=== PATIENT | male | born 1960 | race Caucasian/White ===

== ENCOUNTER 2018-07-20 18:18 | Inpatient (IN) | payer OTHER ==
[~2018-07-20] VITALS: Ht 180.3 cm; Wt 117.9 kg
[2018-07-20 20:36] LABS: BASOPHIL % 0.4 % (0-2); RED CELL DISTRIBUTION WIDTH 14.3 % (11.5-14.5)
[2018-07-20 20:46] LABS: PLATELET COUNT 89 x10^3mcL (130-400)
[2018-07-20 20:54] LABS: CALCIUM 8.7 mg/dL (8.5-10.1); CARBON DIOXIDE 26.4 mmol/L (21-32); CHLORIDE SERUM 100 mmol/L (98-107); CREATININE SERUM 0.8 mg/dL (0.7-1.3); GFR1 > 60 mL/min; GLUCOSE SERUM 115 mg/dL (74-106); POTASSIUM SERUM 3.6 mmol/L (3.5-5.1); SODIUM SERUM 134 mmol/L (136-145)
[2018-07-20 20:58] LABS: ALBUMIN 3.4 g/dL (3.4-5.0); ALKALINE PHOSPHATASE 92 U/L (46-116); ALT/SGPT 37 U/L (16-63); AST/SGOT 41 U/L (15-37); BILIRUBIN TOTAL 3.4 mg/dL (0.20-1.00); TOTAL PROTEIN, SERUM 7.8 g/dL (6.4-8.2)
[2018-07-20 23:21] LABS: BILIRUBIN DIRECT 0.78 mg/dL (0.0-0.2); BILIRUBIN TOTAL 3.5 mg/dL (0.20-1.00); MAGNESIUM 1.8 mg/dL (1.8-2.4)
[2018-07-20 23:36] VITALS: BP 128/66
[2018-07-20 23:37] LABS: microscopic required? NO
[2018-07-20 23:41] LABS: UA SPECIFIC GRAVITY <=1.005 (1.005-1.035); urine erythrocyte NEGATIVE (NEGATIVE)
[2018-07-20 23:50] LABS: AMPHETAMINE QUAL UR NONE DETECTED (See below)
[2018-07-21 00:55] VITALS: BP 128/66
[2018-07-21 05:33] VITALS: BP 120/71
[2018-07-21 06:19] LABS: BASOPHIL % 0.2 % (0-2); RED CELL DISTRIBUTION WIDTH 14.1 % (11.5-14.5)
[2018-07-21 06:42] LABS: CALCIUM 8.7 mg/dL (8.5-10.1); CARBON DIOXIDE 27.7 mmol/L (21-32); CHLORIDE SERUM 105 mmol/L (98-107); CREATININE SERUM 0.8 mg/dL (0.7-1.3); GFR1 > 60 mL/min; GLUCOSE SERUM 106 mg/dL (74-106); MAGNESIUM 1.7 mg/dL (1.8-2.4); PHOSPHOROUS 2.3 mg/dL (2.5-4.9); POTASSIUM SERUM 4.5 mmol/L (3.5-5.1); SODIUM SERUM 137 mmol/L (136-145)
[2018-07-21 07:15] LABS: PLATELET COUNT 76 x10^3mcL (130-400)
[2018-07-21 09:00] VITALS: BP 138/81
[2018-07-21 11:33] LABS: BILIRUBIN DIRECT 0.76 mg/dL (0.0-0.2); BILIRUBIN TOTAL 2.3 mg/dL (0.20-1.00); TOTAL PROTEIN, SERUM 6.7 g/dL (6.4-8.2)
[2018-07-21 11:39] LABS: ALBUMIN 2.9 g/dL (3.4-5.0)
[2018-07-21 13:18] VITALS: BP 122/71
[2018-07-21 21:09] VITALS: BP 128/79
[2018-07-22 05:09] VITALS: BP 128/72
[2018-07-22 07:56] LABS: BASOPHIL % 0.3 % (0-2); RED CELL DISTRIBUTION WIDTH 13.3 % (11.5-14.5)
[2018-07-22 08:02] LABS: PLATELET COUNT 93 x10^3mcL (130-400)
[2018-07-22 08:16] LABS: ALKALINE PHOSPHATASE 67 U/L (46-116); ALT/SGPT 22 U/L (16-63); AST/SGOT 31 U/L (15-37); BILIRUBIN DIRECT 0.69 mg/dL (0.0-0.2); BILIRUBIN TOTAL 2.24 mg/dL (0.20-1.00); CARBON DIOXIDE 25.2 mmol/L (21-32); CHLORIDE SERUM 108 mmol/L (98-107); CREATININE SERUM 0.7 mg/dL (0.7-1.3); GFR1 > 60 mL/min; GLUCOSE SERUM 90 mg/dL (74-106); MAGNESIUM 1.8 mg/dL (1.8-2.4); PHOSPHOROUS 3.5 mg/dL (2.5-4.9); POTASSIUM SERUM 3.7 mmol/L (3.5-5.1); SODIUM SERUM 140 mmol/L (136-145); TOTAL PROTEIN, SERUM 6.2 g/dL (6.4-8.2)
[2018-07-22 08:24] LABS: ALBUMIN 2.7 g/dL (3.4-5.0)
[2018-07-22 10:22] VITALS: BP 135/75
[2018-07-22] MEDS ORDERED: KEFLEX500 M1 PO (11:41)
[2018-07-22] MEDS ORDERED: BACTRIM DS1 TAB PO (11:42)
[2018-07-22] MEDS ORDERED: LAC PO (11:42)
[2018-07-22 12:01] VITALS: BP 135/75
[2018-07-22 14:06] VITALS: BP 138/81
[2018-07-23 11:09] VITALS: Ht 180.3 cm; Wt 117.9 kg
== END 2018-07-22 14:20 | disposition home or self-care (01) | DRG 383 ==
LOC: ED 18:18 → MU 22:16 → DU 07-21 06:44
PROVIDERS: Emergency Medicine; ADMIT General Practice
DX: L03.115 Cellulitis of right lower limb (principal); D68.59 Other primary thrombophilia; D69.6 Thrombocytopenia, unspecified; E83.39 Other disorders of phosphorus metabolism; E83.42 Hypomagnesemia; E87.1 Hypo-osmolality and hyponatremia; G47.30 Sleep apnea, unspecified; K57.90 Diverticulosis of intestine, part unspecified, without perforation or abscess without bleeding; I10 Essential (primary) hypertension
CPT/HCPCS: G0480; J0690; J0696; J3370; Q0092